=== PATIENT | male | born 2000 | race Caucasian/White ===

== ENCOUNTER 2024-08-17 18:49 | Emergency (ER) | payer SELFPAY ==
[~2024-08-17] VITALS: Ht 165.1 cm; Wt 81.6 kg
[2024-08-17 19:01] VITALS: O2SAT 100
[2024-08-17 22:04] LABS: BASOPHILS % 0.4 % (0.0-2.0); EOSINOPHILS % 2.1 % (0.0-5.0); HEMATOCRIT. 42.5 % (42.0-52.0); HEMOGLOBIN. 14.3 g/dL (14.0-18.0); LYMPHOCYTES % 44.8 % (20.0-50.0); MEAN CORPUSCULAR HEMOGLOBIN 31.7 pg (28.0-32.0); MEAN CORPUSCULAR HGB CONC 33.8 g/dL (31.0-37.0); MEAN CORPUSCULAR VOLUME 93.9 fL (80.0-94.0); MEAN PLATELET VOLUME 7.4 fl (7.4-10.4); MONOCYTES % 6.4 % (2.0-8.0); NEUTROPHILS % 46.3 % (40.0-76.0); PLATELET 242 x1000/uL (130-400); RED BLOOD CELL COUNT 4.52 mill/uL (4.7-6.1); RED CELL DISTRIBUTION WIDTH 13.1 % (11.6-14.6); WHITE BLOOD COUNT 5.8 x1000/uL (4.5-11.0)
[2024-08-17 22:10] LABS: CHLORIDE 106 mEq/L (98-107); POTASSIUM 3.6 mEq/L (3.5-5.1); SODIUM 143 mEq/L (136-145)
[2024-08-17 22:12] LABS: CALCIUM 9.3 mg/dL (8.7-10.4); CARBON DIOXIDE 28 mEq/L (21-32)
[2024-08-17 22:16] LABS: CREATININE 0.8 mg/dL (0.6-1.3); GLUCOSE 86 mg/dL (70-105)
[2024-08-17 22:17] LABS: UREA NITROGEN BLOOD 8 mg/dL (9-23)
[2024-08-17 23:46] LABS: CLARITY URINE CLEAR (CLEAR); COLOR URINE YELLOW (YELLOW); GLUCOSE URINE NEGATIVE (NEGATIVE); KETONES URINE NEGATIVE (NEGATIVE); LEUKOCYTE ESTERASE URINE NEGATIVE (NEGATIVE); NITRITE URINE NEGATIVE (NEGATIVE); OCCULT BLOOD URINE NEGATIVE (NEGATIVE); PH URINE 6.5 (4.5-8.0); PROTEIN URINE NEGATIVE (NEGATIVE); SPECIFIC GRAVITY URINE 1.021 (1.005-1.030)
[2024-08-18] MEDS ORDERED: TAMS-11 MT (00:18)
[2024-08-18 01:45] VITALS: BP 111/66; PULSE 94; RESP 16; TEMP 37.1; O2SAT 100
== END 2024-08-18 00:49 | disposition home or self-care (01) ==
LOC: ER 18:49
DX: R35.0 Frequency of micturition (principal)
CPT/HCPCS: 36415; 80048; 81003; 85025; 99283

== ENCOUNTER 2024-12-01 20:19 | Emergency (ER) | payer OTHER ==
[~2024-12-01] VITALS: Ht 165.1 cm; Wt 78.0 kg
[~2024-12-01 20:19] MED LIST: TAMS-54 MT
[2024-12-01 20:58] VITALS: TEMP 36.8; O2SAT 98
[2024-12-01] MEDS: KETOROLAC 15MG/ML VIAL IM ONE (23:00)
[2024-12-02 00:42] LABS: BASOPHILS % 0.3 % (0.0-2.0); EOSINOPHILS % 1.8 % (0.0-5.0); HEMATOCRIT. 42.1 % (42.0-52.0); HEMOGLOBIN. 14.5 g/dL (14.0-18.0); LYMPHOCYTES % 44.0 % (20.0-50.0); MEAN PLATELET VOLUME 7.5 fl (7.4-10.4); MONOCYTES % 7.1 % (2.0-8.0); NEUTROPHILS % 46.8 % (40.0-76.0); PLATELET 239 x1000/uL (130-400); RED BLOOD CELL COUNT 4.52 mill/uL (4.7-6.1); RED CELL DISTRIBUTION WIDTH 13.5 % (11.6-14.6)
[2024-12-02 00:50] LABS: CREATININE 1.0 mg/dL (0.6-1.3); UREA NITROGEN BLOOD 7 mg/dL (9-23)
[2024-12-02 00:52] LABS: ASPARTATE AMINOTRANSFERASE 14 IU/L (<34); BILIRUBIN DIRECT 0.3 mg/dL (<=3.0); BILIRUBIN TOTAL 0.9 mg/dL (0.1-1.0); PROTEIN TOTAL 6.8 g/dL (6.0-8.3)
[2024-12-02] MEDS ORDERED: NAPR-1176 MT (02:26)
[2024-12-02] MEDS ORDERED: LIDO-53 TP (02:26)
[2024-12-02 02:37] VITALS: BP 123/77; PULSE 72; RESP 18; O2SAT 99
== END 2024-12-02 02:38 | disposition home or self-care (01) ==
LOC: ER 20:25
DX: K40.90 Unilateral inguinal hernia, without obstruction or gangrene, not specified as recurrent (principal); K58.9 Irritable bowel syndrome, unspecified; Z79.1 Long term (current) use of non-steroidal anti-inflammatories (NSAID); Z79.899 Other long term (current) drug therapy
CPT/HCPCS: 99285; 36415; 96372; 74176; 80076; 80048; 83690; 85025; 76857; J1885